=== PATIENT | female | born 1965 ===

== ENCOUNTER → 2017-02-17 | Outpatient (RCR) | payer MEDICARE, MEDICAID | END | disposition home or self-care (01) | LOC: WCC 13:05 | DX: L97.821 Non-pressure chronic ulcer of other part of left lower leg limited to breakdown of skin (principal); I82.402 Acute embolism and thrombosis of unspecified deep veins of left lower extremity; I10 Essential (primary) hypertension; Z79.01 Long term (current) use of anticoagulants; Z79.52 Long term (current) use of systemic steroids | CPT/HCPCS: G0463 ==

== ENCOUNTER 2017-03-04 13:52 | Outpatient (RCR) | payer MEDICARE, MEDICAID ==
[~2017-03-04] VITALS: Ht 175.3 cm; Wt 68.9 kg
[~2017-03-04 13:52] MED LIST: Lidocaine HCl 2% Jelly 5ml Tube TOPIC ONE
--- NOTE | 2017-03-12 00:15 | Consultation ---
DATE OF CONSULTATION: INFECTIOUS DISEASE CONSULTATION CONSULTING PHYSICIAN: Yashira Jones M.D. REQUESTING PHYSICIAN: Ramirez Kearney D.P.M. REASON FOR CONSULTATION: Left lower extremity wound infection with Staph aureus and Proteus mirabilis. Recommendation for antibiotics therapy in a patient with penicillin and vancomycin allergy. HISTORY OF PRESENT ILLNESS: The patient is a 52-year-old female with past medical history of venous stasis dermatitis of left lower extremity, ulcerative colitis with complication, and chronic venous insufficiency of the deep vein in her legs with DVT, currently on anticoagulation, was referred to wound care clinic for left lower extremity open wound. The patient had skin breakdown over her left medial malleolus and she was recently evaluated by a vascular surgeon, who recommended compression stockings and she was referred to wound care clinic for evaluation of her left leg wound. The patient had wound culture from the left leg on 03/04/2017. It grew Staphylococcus aureus and Proteus mirabilis, resistant to quinolone, so I was consulted by the primary provider for antibiotics treatment and further management since she has significant allergy to penicillin and vancomycin. The patient's wound has been there for couple of weeks. It is mainly due to her chronic venous stasis dermatitis and deep vein thrombosis. She denied any pain or significant drainage from the wound. There is no foul smell or anything coming out of it at this point, but yellowish exudate at the base. PAST MEDICAL HISTORY: Significant for venous stasis dermatitis of the left lower extremity, ulcerative colitis with complication, generalized abdominal pain, bipolar disorder, history of gastrointestinal bleeding, insomnia, fatigue, mild cognitive disorder, and allergic reaction to penicillin and vancomycin. PAST SURGICAL HISTORY: She had ectopic , gastrointestinal biopsy, and vein stripping. MEDICATIONS: She is on infliximab, Detrol, prednisone, Pyridoxine, pantoprazole, mesalamine, and Eliquis. ALLERGY: She is allergic to penicillin and vancomycin. SOCIAL HISTORY: The patient never smoked and never used tobacco or drugs. She is unemployed. Lives at home with family. REVIEW OF SYSTEMS: A 14-point of system reviewed were all negative except the one I mentioned above in my History and Physical. PHYSICAL EXAMINATION: VITAL SIGNS: Blood pressure 179/85, temperature 98.1 degrees, respirations 20, pulse 75, and saturation 98% on room air. GENERAL: Morbidly obese female, lying in bed, awake, alert, oriented, not in distress. HEENT: Normocephalic and atraumatic. Pupils reactive to light equally. Moist oral mucosa. No exudate or thrush. NECK: Supple. No lymphadenopathy. CARDIOVASCULAR: Regular rate and rhythm. No murmur or gallop. LUNGS: Clear bilaterally. No wheezing. No rhonchi. Normal breathing efforts. ABDOMEN: Soft, obese, not tender, and not distended. Positive bowel sounds. No hepatosplenomegaly. No ascites. EXTREMITY: She had edema +1 in both lower extremities. Poor pulse in the distal pedal area. Left medial ankle skin wound measured about 1 x 1 cm with yellowish exudate at the base. No significant drainage or foul-smelling. IMAGING: In [facility] emergency room , she had a venous Doppler, which showed recanalized thrombus in the right popliteal vein. There is recanalized thrombus in the left femoral, popliteal, and posterior tibial vein. There was subacute thrombus in the left lesser saphenous vein. Venous insufficiency is present in the left popliteal vein. Remainder of the deep and superficial venous system is patent. ASSESSMENT AND RECOMMENDATION: 1. Left medial ankle wound infection with Staph aureus and Proteus mirabilis. We will start the patient on Bactrim orally for 10 days. Continue local wound care. Advised to keep the leg elevated all the time with compression device to improve her recovery. Continue local wound care as per wound care service. 2. Deep venous thrombosis. Continue anticoagulation as per vascular. Follow up with Vascular Surgery. 3. Ulcerative colitis. Continue infliximab at this point. Follow up with gastrointestinal. Thank you for the consult. Infectious Disease will continue to follow with you. Yashira Jones M.D. DR: CARLYLE JOB#: [id number] CC: [email or web address]
== END 2017-03-20 | disposition home or self-care (01) ==
LOC: WCC 13:52
DX: L97.821 Non-pressure chronic ulcer of other part of left lower leg limited to breakdown of skin (principal); Z86.718 Personal history of other venous thrombosis and embolism; Z79.01 Long term (current) use of anticoagulants; I10 Essential (primary) hypertension; F41.9 Anxiety disorder, unspecified; Z79.52 Long term (current) use of systemic steroids; Z88.0 Allergy status to penicillin; Z91.041 Radiographic dye allergy status; Z88.8 Allergy status to other drugs, medicaments and biological substances
CPT/HCPCS: 11043; 29580; 87070; 87181; 87205

== ENCOUNTER 2017-03-25 14:00 | Outpatient (RCR) | payer MEDICARE, MEDICAID | END 2017-04-19 | disposition home or self-care (01) | LOC: WCC 14:00 | DX: L97.821 Non-pressure chronic ulcer of other part of left lower leg limited to breakdown of skin (principal); I82.402 Acute embolism and thrombosis of unspecified deep veins of left lower extremity; I10 Essential (primary) hypertension; Z86.718 Personal history of other venous thrombosis and embolism; F41.9 Anxiety disorder, unspecified; E78.00 Pure hypercholesterolemia, unspecified; Z79.01 Long term (current) use of anticoagulants; Z79.52 Long term (current) use of systemic steroids; Z88.0 Allergy status to penicillin; Z91.041 Radiographic dye allergy status | CPT/HCPCS: 11043; 29580 ==

== ENCOUNTER 2017-04-22 13:56 | Outpatient (RCR) | payer MEDICARE, MEDICAID ==
[~2017-04-22] VITALS: Ht 175.3 cm; Wt 68.9 kg
[2017-04-25] MEDS ORDERED: Lidocaine HCl 2% Jelly 5ml Tube TOPIC ONE (11:45)
== END 2017-05-20 | disposition home or self-care (01) ==
LOC: WCC 13:56
DX: L97.821 Non-pressure chronic ulcer of other part of left lower leg limited to breakdown of skin (principal); I82.402 Acute embolism and thrombosis of unspecified deep veins of left lower extremity; E78.00 Pure hypercholesterolemia, unspecified; I10 Essential (primary) hypertension; F41.9 Anxiety disorder, unspecified; Z79.01 Long term (current) use of anticoagulants; Z79.52 Long term (current) use of systemic steroids; Z88.0 Allergy status to penicillin; Z88.8 Allergy status to other drugs, medicaments and biological substances; Z91.041 Radiographic dye allergy status
CPT/HCPCS: 29580; G0463